=== PATIENT | male | born 1965 | race Caucasian/White ===

== ENCOUNTER 2016-09-15 13:29 | Emergency (ER) | payer OTHER ==
[2016-09-15] MEDS ORDERED: CYCLOBENZAPRINE 10 MG TAB ONE (14:39)
[2016-09-15] MEDS ORDERED: KETOROLAC 60 MG/2 ML VIAL IM ONE (14:39)
== END 2016-09-15 15:12 | disposition home or self-care (01) ==
LOC: FASTR 13:29
CPT/HCPCS: 96372